=== PATIENT | female | born 1940 | race Caucasian/White ===

== ENCOUNTER 2021-06-09 16:32 | Day surgery (SDCO) | payer MEDICARE, OTHER ==
[~2021-06-09] VITALS: Ht 160 cm; Wt 88.2 kg
[~2021-06-09 16:32] MED LIST: ASPIRIN CHEWABL81 MG PO; AUGMENTIN875 MG PO; CEPHALEXIN500 MG PO; COREG12.5 MG PO; COUMADIN5 MG PO; COUMADIN7.5 MG PO; DEMADEX10 MG PO; FLONASE ALLER15.8 ML; HYDROCODON-ACE1 EAC6 PO; IRON SUPPLIMENT PO; JANUVIA50 MG PO; LOTRIMIN30 GM TOP; NITROQUIK SL0.4 MG SL; ONE A DAY PO; PRAVACHOL20 MG PO; PROBIOTIC1 EAC1 PO; PROZAC20 MG PO; SILVASORB480 ML TOP; TOPROL XL 25MG25 MG PO; VICODIN 10/3251 EACH PO; XANAX0.5 MG PO; XANAX1 MG PO
[2021-06-09 18:46] LABS: BILIRUBIN NEGATIVE (NEGATIVE); BLOOD TRACE-INTACT Ery/uL (NEGATIVE); CLARITY CLEAR (CLEAR); COLOR YELLOW (YELLOW); GLUCOSE (U) NORMAL (NORMAL); LEUKOCYTES 1+ Leu/uL (NEGATIVE); NITRITE NEGATIVE (NEGATIVE); PROTEIN NEGATIVE (NEGATIVE); UROBILINOGEN 0.2 mg/dL (0.2-1.0)
[2021-06-09 18:52] LABS: AMORPHOUS URATES CRYSTALS MODERATE; BACTERIA 1+
[2021-06-09 18:55] LABS: BASOPHIL 0.6 % (0-2); EOSINOPHIL 5.3 % (0-7); HCT 30.3 % (37.0-47.0); HGB 9.8 g/dl (12.5-16.0); LYMPHOCYTE 24.2 % (15-48); MCH 32.8 pg (25.0-31.0); MCHC 32.3 g/dL (32.0-36.0); MCV 101.3 fL (78.0-100.0); MONOCYTE 10.9 % (0-12); MPV 9.6 fL (6.0-9.5); NEUTROPHIL 58.8 % (41-80); NRBC 0; PLT 162 K/uL (150-400); RBC 2.99 M/uL (4.20-5.40); RDW 14.2 % (11.5-14.0); WBC 4.8 K/uL (4.0-10.5)
[2021-06-09 19:06] LABS: INR 3.77 (0.9-1.2); PROTHROMBIN TIME 36.1 SECONDS (11.8-13.4); PTT 68.3 SECONDS (24.4-34.7)
[2021-06-09 19:12] LABS: ALBUMIN 3.7 g/dL (3.4-5.0); BUN/CREAT RATIO (CALC) 31.3 RATIO; CREATININE 1.98 mg/dL (0.51-0.95); GLOBULIN (CALCULATION) 3.1 g/dL; POTASSIUM 3.6 mmol/L (3.5-5.1); TOTAL PROTEIN 6.8 g/dL (6.4-8.2)
[2021-06-09 19:27] LABS: CKMB 5.1 ng/mL (0.0-3.6); PRO-BNP 5567 pg/mL (<450)
[2021-06-09] MEDS ORDERED: JANUVIA50 MG PO (22:35)
[2021-06-09] MEDS ORDERED: TOPROL XL50 MG PO (22:35)
[2021-06-09] MEDS ORDERED: K-DUR20 MEQ PO (22:36)
[2021-06-09] MEDS ORDERED: JANTOVEN5 MG PO (22:37)
[2021-06-09] MEDS ORDERED: IRON18 MG PO (22:37)
[2021-06-09] MEDS ORDERED: METOLAZONE 5MG T5 M1 PO (22:38)
[2021-06-10 06:27] LABS: BASOPHIL 0.8 % (0-2); EOSINOPHIL 6.6 % (0-7); HCT 29.5 % (37.0-47.0); HGB 9.6 g/dl (12.5-16.0); LYMPHOCYTE 29.1 % (15-48); MCHC 32.5 g/dL (32.0-36.0); MCV 101.4 fL (78.0-100.0); MPV 9.6 fL (6.0-9.5); NEUTROPHIL 49.5 % (41-80); NRBC 0; PLT 148 K/uL (150-400); RBC 2.91 M/uL (4.20-5.40); RDW 14.1 % (11.5-14.0); WBC 3.8 K/uL (4.0-10.5)
[2021-06-10 06:51] LABS: INR 3.62 (0.9-1.2)
[2021-06-10 06:52] LABS: PTT 66.1 SECONDS (24.4-34.7)
[2021-06-10 07:00] LABS: ALBUMIN 3.4 g/dL (3.4-5.0); BILIRUBIN - TOTAL 0.8 mg/dL (0.2-1.0); BUN/CREAT RATIO (CALC) 33.5 RATIO; CREATININE 1.97 mg/dL (0.51-0.95); GLOBULIN (CALCULATION) 3.1 g/dL; TOTAL PROTEIN 6.5 g/dL (6.4-8.2)
--- NOTE | 2021-06-10 12:34 | NUR ---
PT IS OBS. PLEASE CONSIDER INPT OR D/C THANK YOU.
[2021-06-11 06:08] LABS: INR 2.95 (0.9-1.2); PROTHROMBIN TIME 29.7 SECONDS (11.8-13.4)
[2021-06-11 06:21] LABS: BUN/CREAT RATIO (CALC) 29.8 RATIO; CREATININE 2.15 mg/dL (0.51-0.95); MAGNESIUM 2.7 mg/dL (1.8-2.4); POTASSIUM 3.8 mmol/L (3.5-5.1)
--- NOTE | 2021-06-11 09:57 | NUR ---
ROSAS REMOVED ORDERED WITHOUT DIFFICULTY
== END 2021-06-11 14:05 | disposition home or self-care (01) ==
LOC: FER 16:32 → FMS 21:22
PROVIDERS: Emergency Medicine; Internal Medicine Cardiovascular Disease; Nurse Practitioner; ADMIT Internal Medicine
DX: I31.3 Pericardial effusion (noninflammatory) (principal); N17.9 Acute kidney failure, unspecified; I13.0 Hypertensive heart and chronic kidney disease with heart failure and stage 1 through stage 4 chronic kidney disease, or unspecified chronic kidney disease; I50.9 Heart failure, unspecified; N18.9 Chronic kidney disease, unspecified; N30.01 Acute cystitis with hematuria; I48.91 Unspecified atrial fibrillation; S32.019A Unspecified fracture of first lumbar vertebra, initial encounter for closed fracture; I08.1 Rheumatic disorders of both mitral and tricuspid valves; I27.20 Pulmonary hypertension, unspecified; I87.8 Other specified disorders of veins; E11.9 Type 2 diabetes mellitus without complications; F32.9 Major depressive disorder, single episode, unspecified; F41.9 Anxiety disorder, unspecified; M19.90 Unspecified osteoarthritis, unspecified site; K21.9 Gastro-esophageal reflux disease without esophagitis; Z79.82 Long term (current) use of aspirin; Z79.01 Long term (current) use of anticoagulants; Z79.84 Long term (current) use of oral hypoglycemic drugs; Z79.899 Other long term (current) drug therapy; Z79.891 Long term (current) use of opiate analgesic; Z20.822 Contact with and (suspected) exposure to COVID-19; Z88.1 Allergy status to other antibiotic agents; Z88.8 Allergy status to other drugs, medicaments and biological substances; Z95.0 Presence of cardiac pacemaker; Z90.49 Acquired absence of other specified parts of digestive tract
CPT/HCPCS: 36415; 71046; 80048; 80053; 81001; 82553; 83605; 83735; 83880; 84145; 84484; 85025; 85610; 85730; 86140; 87088; 93005; 94010; 94760; G0378; J0696; J1940; J2270; U0002

== ENCOUNTER 2022-05-08 10:36 | Emergency (ER) | payer MEDICARE, OTHER ==
[~2022-05-08 10:36] MED LIST changes: +IRON18 MG PO; +JANTOVEN5 MG PO; +K-DUR20 MEQ PO; +METOLAZONE 5MG T5 M1 PO; +TOPROL XL50 MG PO
[2022-05-08 12:06] LABS: BILIRUBIN NEGATIVE (NEGATIVE); BLOOD 3+ Ery/uL (NEGATIVE); CLARITY CLEAR (CLEAR); COLOR YELLOW (YELLOW); GLUCOSE (U) NORMAL (NORMAL); LEUKOCYTES 2+ Leu/uL (NEGATIVE); NITRITE NEGATIVE (NEGATIVE); PROTEIN 1+ mg/dL (NEGATIVE); UROBILINOGEN 0.2 mg/dL (0.2-1.0)
[2022-05-08 12:22] LABS: BACTERIA 1+; URINARY RBC TNTC
[2022-05-08 12:30] LABS: BASOPHIL 0.7 % (0-2); EOSINOPHIL 2.5 % (0-7); HCT 34.8 % (37.0-47.0); HGB 11.3 g/dl (12.5-16.0); LYMPHOCYTE 27.4 % (15-48); MCH 32.8 pg (25.0-31.0); MCHC 32.5 g/dL (32.0-36.0); MCV 100.9 fL (78.0-100.0); MONOCYTE 11.9 % (0-12); NEUTROPHIL 57.5 % (41-80); NRBC 0; PLT 144 K/uL (150-400); RBC 3.45 M/uL (4.20-5.40); RDW 14.6 % (11.5-14.0); WBC 4.5 K/uL (4.0-10.5)
[2022-05-08 12:35] LABS: INR 2.49 (0.9-1.2); PTT 43.5 SECONDS (24.4-34.7)
[2022-05-08 12:39] LABS: ALBUMIN 3.6 g/dL (3.4-5.0); BUN/CREAT RATIO (CALC) 28.6 RATIO; CREATININE 1.4 mg/dL (0.51-0.95); GLOBULIN (CALCULATION) 2.7 g/dL; TOTAL PROTEIN 6.3 g/dL (6.4-8.2)
[2022-05-08] MEDS ORDERED: CEPHALEXIN500 MG PO (13:30)
== END 2022-05-08 13:55 | disposition home or self-care (01) ==
LOC: FER 10:36
PROVIDERS: Emergency Medicine
DX: S51.811A Laceration without foreign body of right forearm, initial encounter (principal); S00.83XA Contusion of other part of head, initial encounter; N39.0 Urinary tract infection, site not specified; I10 Essential (primary) hypertension; E11.9 Type 2 diabetes mellitus without complications; Z79.84 Long term (current) use of oral hypoglycemic drugs; Z88.1 Allergy status to other antibiotic agents; Z88.2 Allergy status to sulfonamides; Z88.8 Allergy status to other drugs, medicaments and biological substances; W19.XXXA Unspecified fall, initial encounter; Y93.E2 Activity, laundry; Y92.009 Unspecified place in unspecified non-institutional (private) residence as the place of occurrence of the external cause
CPT/HCPCS: 36415; 70450; 72125; 73080; 80053; 81001; 85025; 85610; 85730; 87088; 93005

== ENCOUNTER 2022-05-22 10:14 | Emergency (ER) | payer MEDICARE, OTHER ==
[2022-05-22 11:04] LABS: BASOPHIL 0.8 % (0-2); EOSINOPHIL 4.1 % (0-7); HCT 36.7 % (37.0-47.0); HGB 12.2 g/dl (12.5-16.0); LYMPHOCYTE 23.5 % (15-48); MCH 33.2 pg (25.0-31.0); MCHC 33.2 g/dL (32.0-36.0); MONOCYTE 10.9 % (0-12); MPV 10.5 fL (6.0-9.5); NEUTROPHIL 60.4 % (41-80); NRBC 0; PLT 148 K/uL (150-400); RBC 3.67 M/uL (4.20-5.40); RDW 14.6 % (11.5-14.0)
[2022-05-22 11:24] LABS: CREATININE 1.67 mg/dL (0.51-0.95)
[2022-05-22 11:34] LABS: ALBUMIN 3.8 g/dL (3.4-5.0); BILIRUBIN - TOTAL 1.4 mg/dL (0.2-1.0); BUN/CREAT RATIO (CALC) 30.5 RATIO; GLOBULIN (CALCULATION) 3.2 g/dL
[2022-05-22 11:46] LABS: BILIRUBIN NEGATIVE (NEGATIVE); BLOOD 2+ Ery/uL (NEGATIVE); CLARITY CLEAR (CLEAR); COLOR YELLOW (YELLOW); GLUCOSE (U) NORMAL (NORMAL); LEUKOCYTES NEGATIVE Leu/uL (NEGATIVE); NITRITE NEGATIVE (NEGATIVE); PROTEIN NEGATIVE (NEGATIVE); UROBILINOGEN 0.2 mg/dL (0.2-1.0); pH 6.5 (5.0-9.0)
[2022-05-22 11:52] LABS: INR 2.49 (0.9-1.2); PTT 51.2 SECONDS (24.4-34.7)
[2022-05-22 11:52] LABS: URINARY WBC RARE
[2022-05-22 11:53] LABS: BACTERIA TRACE
== END 2022-05-22 13:49 | disposition home or self-care (01) ==
LOC: FER 10:14
PROVIDERS: Emergency Medicine
DX: I11.0 Hypertensive heart disease with heart failure (principal); I50.9 Heart failure, unspecified; Z88.1 Allergy status to other antibiotic agents; Z88.2 Allergy status to sulfonamides; Z88.8 Allergy status to other drugs, medicaments and biological substances; Z91.040 Latex allergy status
CPT/HCPCS: 36415; 71045; 80053; 81001; 83880; 84484; 85025; 85610; 85730; 93005

== ENCOUNTER 2022-07-04 17:42 | Emergency (ER) | payer MEDICARE, OTHER ==
[2022-07-04 20:25] LABS: EOSINOPHIL 3.3 % (0-7); HCT 31.4 % (37.0-47.0); HGB 10.3 g/dl (12.5-16.0); LYMPHOCYTE 28.5 % (15-48); MCHC 32.8 g/dL (32.0-36.0); MCV 100.6 fL (78.0-100.0); MONOCYTE 9.7 % (0-12); MPV 9.2 fL (6.0-9.5); NEUTROPHIL 57.3 % (41-80); NRBC 0; PLT 132 K/uL (150-400); RBC 3.12 M/uL (4.20-5.40); RDW 15.5 % (11.5-14.0); WBC 4.2 K/uL (4.0-10.5)
[2022-07-04 22:11] LABS: ALBUMIN 3.6 g/dL (3.4-5.0); BUN/CREAT RATIO (CALC) 35.7 RATIO; CREATININE 1.96 mg/dL (0.51-0.95); GLOBULIN (CALCULATION) 2.7 g/dL; TOTAL PROTEIN 6.3 g/dL (6.4-8.2)
== END 2022-07-05 07:35 | disposition home or self-care (01) ==
LOC: FER 17:42
PROVIDERS: Emergency Medicine
DX: I50.9 Heart failure, unspecified (principal); N18.9 Chronic kidney disease, unspecified; Z95.0 Presence of cardiac pacemaker; Z88.2 Allergy status to sulfonamides; Z91.040 Latex allergy status
CPT/HCPCS: 36415; 80053; 85025; 99283

== ENCOUNTER 2022-07-18 15:13 | Inpatient (IN) | payer MEDICARE, OTHER ==
[~2022-07-18] VITALS: Ht 160 cm; Wt 83.1 kg
[2022-07-18 16:28] LABS: BASOPHIL 0.5 % (0-2); EOSINOPHIL 2.9 % (0-7); HCT 26.8 % (37.0-47.0); HGB 8.9 g/dl (12.5-16.0); LYMPHOCYTE 20.1 % (15-48); MCH 33.6 pg (25.0-31.0); MCHC 33.2 g/dL (32.0-36.0); MCV 101.1 fL (78.0-100.0); MONOCYTE 12.5 % (0-12); MPV 9.7 fL (6.0-9.5); NEUTROPHIL 63.7 % (41-80); NRBC 0; PLT 173 K/uL (150-400); RBC 2.65 M/uL (4.20-5.40); RDW 15.6 % (11.5-14.0); WBC 3.8 K/uL (4.0-10.5)
[2022-07-18 16:49] LABS: ALBUMIN 3.6 g/dL (3.4-5.0); BILIRUBIN - TOTAL 0.7 mg/dL (0.2-1.0); CREATININE 2.21 mg/dL (0.51-0.95); GLOBULIN (CALCULATION) 3.2 g/dL; POTASSIUM 3.4 mmol/L (3.5-5.1); TOTAL PROTEIN 6.8 g/dL (6.4-8.2)
[2022-07-18 16:53] LABS: BILIRUBIN NEGATIVE (NEGATIVE); BLOOD 3+ Ery/uL (NEGATIVE); CLARITY CLEAR (CLEAR); COLOR YELLOW (YELLOW); GLUCOSE (U) NORMAL (NORMAL); LEUKOCYTES 3+ Leu/uL (NEGATIVE); NITRITE NEGATIVE (NEGATIVE); PROTEIN TRACE (LOW) mg/dL (NEGATIVE); UROBILINOGEN 0.2 mg/dL (0.2-1.0)
[2022-07-18 16:59] LABS: BACTERIA TRACE; URINARY RBC 20-50
[2022-07-18 18:34] LABS: BILIRUBIN NEGATIVE (NEGATIVE); BLOOD 3+ Ery/uL (NEGATIVE); CLARITY CLEAR (CLEAR); COLOR YELLOW (YELLOW); GLUCOSE (U) NORMAL (NORMAL); LEUKOCYTES 1+ Leu/uL (NEGATIVE); NITRITE NEGATIVE (NEGATIVE); PROTEIN NEGATIVE (NEGATIVE); UROBILINOGEN 0.2 mg/dL (0.2-1.0)
[2022-07-18] MEDS ORDERED: JANTOVEN5 MG PO (23:17)
[2022-07-18] MEDS ORDERED: SYNTHROID50 MCG PO (23:17)
[2022-07-18] MEDS ORDERED: BUMEX1 MG PO (23:18)
[2022-07-18] MEDS ORDERED: POTASSIUM20 MEQ/11 PO (23:19)
[2022-07-19 01:00] LABS: INR 3.39 (0.9-1.2)
[2022-07-19 07:15] LABS: MAGNESIUM 2.6 mg/dL (1.8-2.4)
[2022-07-19] MEDS ORDERED: OS-CAL500 MG PO (07:47)
[2022-07-19] MEDS ORDERED: ASCORBIC ACID500 MG PO (07:48)
[2022-07-19] MEDS ORDERED: MULTIPLE VITAM1 EACH PO (07:58)
[2022-07-19 09:15] LABS: BASOPHIL 0.4 % (0-2); EOSINOPHIL 1.8 % (0-7); HCT 25.7 % (37.0-47.0); HGB 8.4 g/dl (12.5-16.0); LYMPHOCYTE 20.4 % (15-48); MCH 33.5 pg (25.0-31.0); MCHC 32.7 g/dL (32.0-36.0); MCV 102.4 fL (78.0-100.0); MONOCYTE 12.2 % (0-12); MPV 9.7 fL (6.0-9.5); NRBC 0; PLT 170 K/uL (150-400); RBC 2.51 M/uL (4.20-5.40); RDW 15.5 % (11.5-14.0); WBC 4.5 K/uL (4.0-10.5)
[2022-07-19 09:56] LABS: CREATININE 1.98 mg/dL (0.51-0.95); POTASSIUM 2.5 mmol/L (3.5-5.1)
[2022-07-20 07:00] LABS: BASOPHIL 0.5 % (0-2); EOSINOPHIL 3.8 % (0-7); HCT 24.9 % (37.0-47.0); HGB 8.2 g/dl (12.5-16.0); LYMPHOCYTE 22.1 % (15-48); MCH 33.7 pg (25.0-31.0); MCHC 32.9 g/dL (32.0-36.0); MCV 102.5 fL (78.0-100.0); MONOCYTE 12.8 % (0-12); MPV 9.6 fL (6.0-9.5); NEUTROPHIL 60.5 % (41-80); NRBC 0; PLT 157 K/uL (150-400); RBC 2.43 M/uL (4.20-5.40); RDW 15.8 % (11.5-14.0); WBC 3.7 K/uL (4.0-10.5)
[2022-07-20 07:22] LABS: INR 2.6 (0.9-1.2); PROTHROMBIN TIME 26.9 SECONDS (11.9-13.9)
[2022-07-20 08:31] LABS: CREATININE 1.85 mg/dL (0.51-0.95)
--- NOTE | 2022-07-20 13:05 | NUR ---
07/20/22 Ms. Germain lives at home with her daughter. She has a rollator, 3in1, and s. chair. They plan to install bars in the bathroom. Ms. Germain would like the same [employer] that she has had in the past. She did not know the name of the agency. Her daughter, Ms. Torri Guerra, requested [facility]. A referral was ruiz to [facility]. Please contact [facility] at [phone] if patient discharges over the weekend.
[2022-07-21 08:37] LABS: BASOPHIL 0.8 % (0-2); EOSINOPHIL 2.8 % (0-7); HCT 26.5 % (37.0-47.0); HGB 8.6 g/dl (12.5-16.0); LYMPHOCYTE 22.3 % (15-48); MCH 33.5 pg (25.0-31.0); MCHC 32.5 g/dL (32.0-36.0); MCV 103.1 fL (78.0-100.0); MONOCYTE 11.3 % (0-12); MPV 9.5 fL (6.0-9.5); NEUTROPHIL 62.8 % (41-80); NRBC 0; PLT 178 K/uL (150-400); RBC 2.57 M/uL (4.20-5.40); WBC 3.9 K/uL (4.0-10.5)
[2022-07-21 08:52] LABS: INR 2.13 (0.9-1.2); PROTHROMBIN TIME 23.1 SECONDS (11.9-13.9)
[2022-07-21 09:01] LABS: BUN/CREAT RATIO (CALC) 42.5 RATIO; CREATININE 1.86 mg/dL (0.51-0.95); POTASSIUM 3.7 mmol/L (3.5-5.1)
[2022-07-21] MEDS ORDERED: LACTULOSE20 GM/30 M PO (10:36)
[2022-07-21] MEDS ORDERED: BUMEX1 MG PO (10:43)
[2022-07-21] MEDS ORDERED: VITAMIN B-121000 MC1 PO (10:43)
[2022-07-21] MEDS ORDERED: FOLIC ACID1 M1 PO (10:43)
== END 2022-07-21 11:45 | disposition home health service (06) | DRG 432 ==
LOC: FER 15:13 → FMS 20:09
PROVIDERS: Hospitalist; Nurse Practitioner; Physician Assistant; ADMIT Allergy & Immunology Allergy
DX: K74.60 Unspecified cirrhosis of liver (principal); K72.00 Acute and subacute hepatic failure without coma; I13.0 Hypertensive heart and chronic kidney disease with heart failure and stage 1 through stage 4 chronic kidney disease, or unspecified chronic kidney disease; N17.9 Acute kidney failure, unspecified; R18.8 Other ascites; I50.42 Chronic combined systolic (congestive) and diastolic (congestive) heart failure; R79.1 Abnormal coagulation profile; Z20.822 Contact with and (suspected) exposure to COVID-19; E87.6 Hypokalemia; E11.22 Type 2 diabetes mellitus with diabetic chronic kidney disease; K59.09 Other constipation; I48.0 Paroxysmal atrial fibrillation; E03.9 Hypothyroidism, unspecified; F32.A Depression, unspecified; D63.1 Anemia in chronic kidney disease; N18.30 Chronic kidney disease, stage 3 unspecified; Z79.01 Long term (current) use of anticoagulants; Z95.0 Presence of cardiac pacemaker; Z90.49 Acquired absence of other specified parts of digestive tract; Z79.899 Other long term (current) drug therapy; Z88.2 Allergy status to sulfonamides; Z88.8 Allergy status to other drugs, medicaments and biological substances; Z79.82 Long term (current) use of aspirin; Z79.4 Long term (current) use of insulin
CPT/HCPCS: 36415; 71045; 80048; 80053; 81001; 82140; 83735; 83880; 84484; 85025; 85610; 94010; 97162; 97165; J7030; J7040; U0002